=== PATIENT | female | born 1960 | race African-American/Black ===

== ENCOUNTER → 2016-08-30 | Outpatient (CLI) | payer BC | END | disposition home or self-care (01) | LOC: MAMMO 08:06 | PROVIDERS: ATTEND Nurse Practitioner Family | DX: Z12.31 Encounter for screening mammogram for malignant neoplasm of breast (principal) | CPT/HCPCS: G0202 ==

== ENCOUNTER → 2016-12-14 | Outpatient (CLI) | payer BC | END | disposition home or self-care (01) | LOC: LAB 06:03 | PROVIDERS: ATTEND Nurse Practitioner Family | DX: Z00.00 Encounter for general adult medical examination without abnormal findings (principal); R73.03 Prediabetes | CPT/HCPCS: 36415; 83036; 86803 ==

== ENCOUNTER → 2017-08-31 | Outpatient (CLI) | payer BC ==
[2017-08-31 11:11] LABS: BASOPHILS % 1.1 % (0.0-2.0); EOSINOPHILS % 1.2 % (0.0-5.0); HEMATOCRIT. 37.3 % (36.0-48.0); HEMOGLOBIN. 12.9 g/dL (12.0-16.0); MEAN CORPUSCULAR HEMOGLOBIN 31.2 pg (28.0-32.0); MEAN CORPUSCULAR VOLUME 90.3 fL (81.0-99.0); MEAN PLATELET VOLUME 7.4 fl (7.4-10.4); MONOCYTES % 8.3 % (2.0-8.0); NEUTROPHILS % 48.4 % (40.0-76.0); PLATELET 389 x1000/uL (130-400); RED BLOOD CELL COUNT 4.13 mill/uL (4.2-5.4); RED CELL DISTRIBUTION WIDTH 12.9 % (11.6-14.6)
[2017-08-31 12:04] LABS: CHLORIDE 107 mEq/L (98-107)
[2017-08-31 12:23] LABS: HDL CHOLESTEROL 62 mg/dL (40-59); LDL CHOLESTEROL 88 mg/dL (5-100); T4 FREE 0.84 ng/dL (0.76-1.46)
[2017-08-31 12:51] LABS: VITAMIN B12 SERUM 529 pg/mL (211-911)
== END | disposition home or self-care (01) ==
LOC: LAB 10:00
PROVIDERS: ATTEND Family Medicine
DX: Z00.01 Encounter for general adult medical examination with abnormal findings (principal); R79.89 Other specified abnormal findings of blood chemistry; Z79.899 Other long term (current) drug therapy
CPT/HCPCS: 36415; 80053; 80061; 82306; 82607; 82610; 82670; 83001; 83036; 84403; 84439; 84443; 84481; 85025; 86376

== ENCOUNTER → 2017-09-25 | Outpatient (CLI) | payer BC | END | disposition home or self-care (01) | LOC: MAMMO 07:38 | PROVIDERS: ATTEND Family Medicine | DX: Z12.31 Encounter for screening mammogram for malignant neoplasm of breast (principal) | CPT/HCPCS: 77067 ==

== ENCOUNTER → 2018-07-04 | Outpatient (CLI) | payer BC ==
[2018-07-04 12:24] LABS: CLARITY URINE CLOUDY (CLEAR); COLOR URINE YELLOW (YELLOW); KETONES URINE NEGATIVE (NEGATIVE); LEUKOCYTE ESTERASE URINE 2+ (NEGATIVE); NITRITE URINE POSITIVE (NEGATIVE); OCCULT BLOOD URINE 2+ (NEGATIVE); PH URINE 5.5 (4.5-8.0); PROTEIN URINE 1+ (NEGATIVE); UROBILINOGEN URINE 0.2 E.U./dL (0.2-1.0)
== END | disposition home or self-care (01) ==
LOC: LAB 11:59
PROVIDERS: ATTEND Family Medicine
DX: N39.0 Urinary tract infection, site not specified (principal)
CPT/HCPCS: 87077; 87186

== ENCOUNTER → 2018-07-25 | Outpatient (CLI) | payer BC ==
[2018-07-25 06:57] LABS: BASOPHILS % 1.2 % (0.0-2.0); EOSINOPHILS % 1.6 % (0.0-5.0); HEMATOCRIT. 39.7 % (36.0-48.0); HEMOGLOBIN. 13.5 g/dL (12.0-16.0); LYMPHOCYTES % 43.4 % (20.0-50.0); MEAN CORPUSCULAR HEMOGLOBIN 31.6 pg (28.0-32.0); MEAN CORPUSCULAR VOLUME 92.6 fL (81.0-99.0); MEAN PLATELET VOLUME 7.5 fl (7.4-10.4); MONOCYTES % 9.8 % (2.0-8.0); PLATELET 406 x1000/uL (130-400); RED BLOOD CELL COUNT 4.29 mill/uL (4.2-5.4)
[2018-07-25 07:53] LABS: CHLORIDE 104 mEq/L (98-107)
[2018-07-25 08:00] LABS: LDL CHOLESTEROL 97 mg/dL (5-100)
[2018-07-25 08:02] LABS: HDL CHOLESTEROL 70 mg/dL (40-59)
== END | disposition home or self-care (01) ==
LOC: LAB 06:07
PROVIDERS: ATTEND Nurse Practitioner Family
DX: J45.30 Mild persistent asthma, uncomplicated (principal); R73.03 Prediabetes
CPT/HCPCS: 36415; 80061; 84443

== ENCOUNTER → 2020-01-27 | Outpatient (CLI) | payer BC | END | disposition home or self-care (01) | LOC: LAB 07:11 | PROVIDERS: ATTEND Nurse Practitioner Family | DX: Z03.818 Encounter for observation for suspected exposure to other biological agents ruled out (principal) | CPT/HCPCS: C9803; U0003 ==

== ENCOUNTER → 2020-01-30 | Outpatient (CLI) | payer BC | END | disposition home or self-care (01) | LOC: MAMMO 07:18 | PROVIDERS: ATTEND Nurse Practitioner Family | DX: Z12.31 Encounter for screening mammogram for malignant neoplasm of breast (principal); N64.89 Other specified disorders of breast | CPT/HCPCS: 77067 ==

== ENCOUNTER → 2021-02-15 | Outpatient (CLI) | payer BC ==
[2021-02-15 10:17] LABS: CHLORIDE 108 mEq/L (98-107)
[2021-02-15 10:25] LABS: LDL CHOLESTEROL 104 mg/dL (5-100)
[2021-02-15 10:26] LABS: HDL CHOLESTEROL 76 mg/dL (40-59)
== END | disposition home or self-care (01) ==
LOC: LAB 09:34
PROVIDERS: ATTEND Nurse Practitioner Family
DX: R73.03 Prediabetes (principal)
CPT/HCPCS: 36415; 80053; 80061; 82306; 83036; 84443

== ENCOUNTER → 2021-06-23 | Outpatient (CLI) | payer BC | END | disposition home or self-care (01) | LOC: LAB 06:19 | PROVIDERS: ATTEND Nurse Practitioner Family | DX: Z00.00 Encounter for general adult medical examination without abnormal findings (principal) | CPT/HCPCS: 36415; 80061; 82306; 83036 ==

== ENCOUNTER → 2022-03-02 | Outpatient (CLI) | payer BC ==
[2022-03-02 08:12] LABS: BASOPHILS % 0.7 % (0.0-2.0); EOSINOPHILS % 0.7 % (0.0-5.0); HEMATOCRIT. 38.3 % (36.0-48.0); HEMOGLOBIN. 13.2 g/dL (12.0-16.0); LYMPHOCYTES % 23.7 % (20.0-50.0); MEAN CORPUSCULAR HEMOGLOBIN 32.5 pg (28.0-32.0); MEAN CORPUSCULAR VOLUME 93.9 fL (81.0-99.0); MEAN PLATELET VOLUME 7.2 fl (7.4-10.4); NEUTROPHILS % 64.9 % (40.0-76.0); PLATELET 334 x1000/uL (130-400); RED BLOOD CELL COUNT 4.08 mill/uL (4.2-5.4); RED CELL DISTRIBUTION WIDTH 12.9 % (11.6-14.6)
[2022-03-02 08:26] LABS: CHLORIDE 105 mEq/L (98-107)
[2022-03-02 08:48] LABS: HDL CHOLESTEROL 66 mg/dL (40-59); LDL CHOLESTEROL 95 mg/dL (5-100)
== END | disposition home or self-care (01) ==
LOC: LAB 06:28
PROVIDERS: ATTEND Nurse Practitioner Family
DX: Z00.00 Encounter for general adult medical examination without abnormal findings (principal); R73.03 Prediabetes
CPT/HCPCS: 36415; 80053; 80061; 83036; 85025

== ENCOUNTER → 2022-09-22 | Outpatient (CLI) | payer BC ==
[2022-09-22 06:46] LABS: BASOPHILS % 0.9 % (0.0-2.0); EOSINOPHILS % 1.3 % (0.0-5.0); HEMATOCRIT. 38.4 % (36.0-48.0); HEMOGLOBIN. 13.4 g/dL (12.0-16.0); LYMPHOCYTES % 38.5 % (20.0-50.0); MEAN CORPUSCULAR HEMOGLOBIN 33.1 pg (28.0-32.0); MEAN CORPUSCULAR VOLUME 95.1 fL (81.0-99.0); MONOCYTES % 9.1 % (2.0-8.0); NEUTROPHILS % 50.2 % (40.0-76.0); PLATELET 375 x1000/uL (130-400); RED BLOOD CELL COUNT 4.04 mill/uL (4.2-5.4); RED CELL DISTRIBUTION WIDTH 12.8 % (11.6-14.6)
[2022-09-22 07:30] LABS: CHLORIDE 107 mEq/L (98-107)
== END | disposition home or self-care (01) ==
LOC: LAB 06:13
PROVIDERS: ATTEND Nurse Practitioner Family
DX: R51.9 Headache, unspecified (principal)
CPT/HCPCS: 36415; 80053; 83036; 84443; 85025

== ENCOUNTER → 2022-09-27 | Outpatient (CLI) | payer BC | END | disposition home or self-care (01) | LOC: MRI 07:30 | PROVIDERS: ATTEND Nurse Practitioner Family | DX: G44.52 New daily persistent headache (NDPH) (principal) | CPT/HCPCS: 70551 ==

== ENCOUNTER → 2023-03-05 | Outpatient (CLI) | payer BC ==
[2023-03-05 06:40] LABS: CHLORIDE 112 mEq/L (98-107); INDEX HEMOLYSI 1 (1-3); INDEX ICTERIC 1 (1-4); INDEX LIPEMIC 1 (1-3); POTASSIUM 4.3 mEq/L (3.5-5.1); SODIUM 140 mEq/L (136-145)
[2023-03-05 06:55] LABS: ALANINE AMINOTRANSFERASE 32 IU/L (13-61); ALBUMIN 3.4 g/dL (3.4-5.0); ASPARTATE AMINOTRANSFERASE 14 IU/L (15-37); BILIRUBIN TOTAL 0.5 mg/dL (0.1-1.0); CALCIUM 9.4 mg/dL (8.5-10.1); CARBON DIOXIDE 29 mEq/L (21-32); CHOLESTEROL 181 mg/dL (<200); CREATININE 0.9 mg/dL (0.6-1.3); GLUCOSE 107 mg/dL (70-105); HDL CHOLESTEROL 74 mg/dL (40-59); LDL CHOLESTEROL 98 mg/dL (5-100); PROTEIN TOTAL 7.4 g/dL (6.0-8.3); TRIGLYCERIDE 81 mg/dL (0-150); UREA NITROGEN BLOOD 13 mg/dL (7-21)
[2023-03-05 06:58] LABS: BASOPHILS % 1.4 % (0.0-2.0); EOSINOPHILS % 1.8 % (0.0-5.0); HEMATOCRIT. 38.2 % (36.0-48.0); HEMOGLOBIN. 13.1 g/dL (12.0-16.0); LYMPHOCYTES % 40.5 % (20.0-50.0); MEAN CORPUSCULAR HGB CONC 34.2 g/dL (31.0-37.0); MEAN CORPUSCULAR VOLUME 93.6 fL (81.0-99.0); MEAN PLATELET VOLUME 7.3 fl (7.4-10.4); MONOCYTES % 11.6 % (2.0-8.0); NEUTROPHILS % 44.7 % (40.0-76.0); PLATELET 336 x1000/uL (130-400); RED BLOOD CELL COUNT 4.08 mill/uL (4.2-5.4); RED CELL DISTRIBUTION WIDTH 12.8 % (11.6-14.6); WHITE BLOOD COUNT 3.4 x1000/uL (4.5-11.0)
== END | disposition home or self-care (01) ==
LOC: LAB 06:07
PROVIDERS: ATTEND Nurse Practitioner Family
DX: R51.9 Headache, unspecified (principal); E66.01 Morbid (severe) obesity due to excess calories
CPT/HCPCS: 36415; 80053; 80061; 83036; 84443; 85025

== ENCOUNTER → 2023-03-20 | Outpatient (CLI) | payer BC ==
[2023-03-20 09:11] LABS: CLARITY URINE CLEAR (CLEAR); COLOR URINE YELLOW (YELLOW); GLUCOSE URINE NEGATIVE (NEGATIVE); KETONES URINE NEGATIVE (NEGATIVE); LEUKOCYTE ESTERASE URINE TRACE (NEGATIVE); NITRITE URINE NEGATIVE (NEGATIVE); OCCULT BLOOD URINE NEGATIVE (NEGATIVE); PROTEIN URINE NEGATIVE (NEGATIVE); SPECIFIC GRAVITY URINE 1.017 (1.005-1.030); UROBILINOGEN URINE 0.2 E.U./dL (0.2-1.0)
[2023-03-20 09:14] LABS: YEAST URINE NONE SEEN
[2023-03-20 09:30] LABS: BACTERIA URINE FEW; RBC URINE 0-2 /hpf (0-2); SQUAMOUS EPITHELIAL CELL URINE FEW /lpf (RARE/1+); WBC URINE 0-2 /hpf (0-2)
== END | disposition home or self-care (01) ==
LOC: US 08:35
PROVIDERS: ATTEND Nurse Practitioner Family
DX: N85.8 Other specified noninflammatory disorders of uterus (principal); D25.9 Leiomyoma of uterus, unspecified
CPT/HCPCS: 76830; 76856; 81003; 87109

== ENCOUNTER → 2023-05-01 | Outpatient (CLI) | payer BC ==
[2023-05-01 11:43] LABS: BASOPHILS % 1.2 % (0.0-2.0); EOSINOPHILS % 1.1 % (0.0-5.0); HEMATOCRIT. 39.6 % (36.0-48.0); HEMOGLOBIN. 13.4 g/dL (12.0-16.0); LYMPHOCYTES % 33.3 % (20.0-50.0); MEAN CORPUSCULAR HGB CONC 33.8 g/dL (31.0-37.0); MEAN CORPUSCULAR VOLUME 94.7 fL (81.0-99.0); MEAN PLATELET VOLUME 6.9 fl (7.4-10.4); MONOCYTES % 7.5 % (2.0-8.0); NEUTROPHILS % 56.9 % (40.0-76.0); PLATELET 410 x1000/uL (130-400); RED BLOOD CELL COUNT 4.18 mill/uL (4.2-5.4); RED CELL DISTRIBUTION WIDTH 13.3 % (11.6-14.6); WHITE BLOOD COUNT 5.5 x1000/uL (4.5-11.0)
== END | disposition home or self-care (01) ==
LOC: LAB 11:27
PROVIDERS: ATTEND Ophthalmology
DX: I44.4 Left anterior fascicular block (principal); H25.012 Cortical age-related cataract, left eye
CPT/HCPCS: 36415; 80051; 82947; 85025; 93005

== ENCOUNTER → 2023-05-08 | Day surgery (SDC) | payer BC ==
[~2023-05-08] VITALS: Ht 165.1 cm; Wt 102.1 kg
[~2023-05-08] MED LIST: ACETAMINOPHEN 325MG TABLET PO PRN; ALBU18HF2 IH; BALANCED SALT IRRIG SOLN COMB1 500ML OP ONE; BUDE10.3 INH; CHOL400D7 PO; CYAN-33 PO; CYCLOPENTOLATE HCL 1% OPHTH DROPS 2ML RIGHTEYE NR; FENTANYL CITRATE/PF 50MCG/ML 2ML VIAL ONE; HYALURONATE SODIUM 10 MG/ML 0.55ML SYRINGE IO ONE; HYDROCODONE/ACETAMINOPHEN 5/325MG TABLET PO PRN; KETOROLAC 30MG/ML VIAL ONE; LACTATED RINGERS 1,000 ML IV SCH; MIDAZOLAM HCL 2 MG/2 ML VIAL ONE; ONDANSETRON HCL 4MG/2ML INJ IV NR; PHENYLEPHRINE HCL 10% OPHTH DROPS 5ML RIGHTEYE NR; TROPICAMIDE 1% OPHTH DROPS 15ML RIGHTEYE NR; VALA500T PO; [UNRECOGNIZED DRUG - CODE] PO
== END | disposition home or self-care (01) ==
LOC: OR 06:50
PROVIDERS: ATTEND Ophthalmology
DX: H25.89 Other age-related cataract (principal); J45.909 Unspecified asthma, uncomplicated; Z90.49 Acquired absence of other specified parts of digestive tract; Z98.890 Other specified postprocedural states; Z79.899 Other long term (current) drug therapy; Z82.49 Family history of ischemic heart disease and other diseases of the circulatory system; Z83.3 Family history of diabetes mellitus
CPT/HCPCS: 66982; J3010; J1885; J2250; J3490; V2632

== ENCOUNTER → 2023-11-06 | Outpatient (CLI) | payer BC ==
[~2023-11-06] MED LIST changes: -ACETAMINOPHEN 325MG TABLET PO PRN; -BALANCED SALT IRRIG SOLN COMB1 500ML OP ONE; -CYCLOPENTOLATE HCL 1% OPHTH DROPS 2ML RIGHTEYE NR; -FENTANYL CITRATE/PF 50MCG/ML 2ML VIAL ONE; -HYALURONATE SODIUM 10 MG/ML 0.55ML SYRINGE IO ONE; -HYDROCODONE/ACETAMINOPHEN 5/325MG TABLET PO PRN; -KETOROLAC 30MG/ML VIAL ONE; -LACTATED RINGERS 1,000 ML IV SCH; -MIDAZOLAM HCL 2 MG/2 ML VIAL ONE; -ONDANSETRON HCL 4MG/2ML INJ IV NR; -PHENYLEPHRINE HCL 10% OPHTH DROPS 5ML RIGHTEYE NR; -TROPICAMIDE 1% OPHTH DROPS 15ML RIGHTEYE NR
[2023-11-06 10:22] LABS: BASOPHILS % 1.1 % (0.0-2.0); EOSINOPHILS % 1.6 % (0.0-5.0); HEMATOCRIT. 41.5 % (36.0-48.0); MEAN CORPUSCULAR HEMOGLOBIN 32.5 pg (28.0-32.0); MEAN CORPUSCULAR HGB CONC 33.6 g/dL (31.0-37.0); MEAN CORPUSCULAR VOLUME 96.5 fL (81.0-99.0); MEAN PLATELET VOLUME 7.3 fl (7.4-10.4); MONOCYTES % 10.7 % (2.0-8.0); NEUTROPHILS % 46.6 % (40.0-76.0); PLATELET 418 x1000/uL (130-400); RED CELL DISTRIBUTION WIDTH 12.7 % (11.6-14.6); WHITE BLOOD COUNT 4.5 x1000/uL (4.5-11.0)
[2023-11-06 10:28] LABS: CLARITY URINE CLOUDY (CLEAR); COLOR URINE YELLOW (YELLOW); GLUCOSE URINE NEGATIVE (NEGATIVE); KETONES URINE NEGATIVE (NEGATIVE); LEUKOCYTE ESTERASE URINE NEGATIVE (NEGATIVE); NITRITE URINE NEGATIVE (NEGATIVE); OCCULT BLOOD URINE TRACE (NEGATIVE); PH URINE 5.5 (4.5-8.0); PROTEIN URINE NEGATIVE (NEGATIVE); SPECIFIC GRAVITY URINE 1.023 (1.005-1.030); UROBILINOGEN URINE 0.2 E.U./dL (0.2-1.0)
[2023-11-06 10:41] LABS: SQUAMOUS EPITHELIAL CELL URINE 2+ /lpf (RARE/1+)
[2023-11-06 10:42] LABS: BACTERIA URINE 2+; RBC URINE 0-2 /hpf (0-2); WBC URINE NONE SEEN /hpf (0-2)
[2023-11-06 10:48] LABS: CHLORIDE 102 mEq/L (98-107); POTASSIUM 4.3 mEq/L (3.5-5.1); SODIUM 138 mEq/L (136-145)
[2023-11-06 10:49] LABS: CARBON DIOXIDE 28 mEq/L (21-32)
[2023-11-06 10:54] LABS: CREATININE 0.9 mg/dL (0.6-1.0); GLUCOSE 90 mg/dL (70-105); TRIGLYCERIDE 188 mg/dL (0-150); UREA NITROGEN BLOOD 14 mg/dL (9-23)
[2023-11-06 10:55] LABS: LDL CHOLESTEROL 121 mg/dL (5-100)
[2023-11-06 10:56] LABS: CHOLESTEROL 211 mg/dL (<200); HDL CHOLESTEROL 71 mg/dL (>65)
[2023-11-06 10:59] LABS: THYROID STIMULATING HORMONE 2.08 uIU/mL (0.55-4.78)
== END | disposition home or self-care (01) ==
LOC: LAB 09:41
PROVIDERS: ATTEND Internal Medicine Nephrology
DX: R73.03 Prediabetes (principal)
CPT/HCPCS: 36415; 80048; 80061; 81003; 83036; 84443; 85025

== ENCOUNTER → 2023-11-16 | Outpatient (CLI) | payer BC | END | disposition home or self-care (01) | LOC: LAB 06:56 | PROVIDERS: ATTEND Internal Medicine Nephrology | DX: M25.561 Pain in right knee (principal) | CPT/HCPCS: 73562 ==

== ENCOUNTER → 2023-12-10 | Outpatient (CLI) | payer BC ==
[2023-12-10 12:39] LABS: EOSINOPHILS % 1.3 % (0.0-5.0); HEMATOCRIT. 39.4 % (36.0-48.0); HEMOGLOBIN. 13.5 g/dL (12.0-16.0); LYMPHOCYTES % 37.3 % (20.0-50.0); MEAN CORPUSCULAR HEMOGLOBIN 32.5 pg (28.0-32.0); MEAN CORPUSCULAR HGB CONC 34.3 g/dL (31.0-37.0); MEAN CORPUSCULAR VOLUME 94.8 fL (81.0-99.0); MEAN PLATELET VOLUME 7.6 fl (7.4-10.4); MONOCYTES % 8.1 % (2.0-8.0); NEUTROPHILS % 52.3 % (40.0-76.0); PLATELET 352 x1000/uL (130-400); RED BLOOD CELL COUNT 4.15 mill/uL (4.2-5.4); RED CELL DISTRIBUTION WIDTH 12.8 % (11.6-14.6); WHITE BLOOD COUNT 5.6 x1000/uL (4.5-11.0)
[2023-12-10 13:03] LABS: URIC ACID 5.6 mg/dL (3.1-7.8)
[2023-12-10 13:14] LABS: C REACTIVE PROTEIN QUANT 11.2 mg/L (0.0-3.0)
[2023-12-16 09:07] LABS: ANA IFA Positive (.)
== END | disposition home or self-care (01) ==
LOC: LAB 11:51
PROVIDERS: ATTEND Orthopaedic Surgery
DX: M25.561 Pain in right knee (principal); J30.9 Allergic rhinitis, unspecified
CPT/HCPCS: 36415; 84550; 85025; 86003; 86140; 86256; 86431

== ENCOUNTER 2023-12-22 02:41 | Emergency (ER) | payer BC ==
[~2023-12-22] VITALS: Ht 165.1 cm; Wt 105.3 kg
[2023-12-22 03:45] VITALS: O2SAT 99
[2023-12-22] MEDS ORDERED: KETO10TA2 MT (08:45)
[2023-12-22 09:00] VITALS: BP 145/86; PULSE 79; RESP 19; TEMP 98.2
[2023-12-22] MEDS: KETOROLAC 10MG TABLET PO ONE (09:00)
== END 2023-12-22 10:56 | disposition home or self-care (01) ==
LOC: ER 02:41
DX: M25.561 Pain in right knee (principal); J45.909 Unspecified asthma, uncomplicated; Z90.49 Acquired absence of other specified parts of digestive tract; Z98.890 Other specified postprocedural states; Z88.2 Allergy status to sulfonamides; Z98.51 Tubal ligation status
CPT/HCPCS: 99283

== ENCOUNTER → 2024-04-04 | Outpatient (CLI) | payer BC ==
[~2024-04-04] MED LIST changes: +KETO10TA2 MT
[2024-04-04 12:41] LABS: BASOPHILS % 1.2 % (0.0-2.0); EOSINOPHILS % 1.7 % (0.0-5.0); HEMATOCRIT. 38.8 % (36.0-48.0); LYMPHOCYTES % 37.5 % (20.0-50.0); MEAN CORPUSCULAR HEMOGLOBIN 31.8 pg (28.0-32.0); MEAN CORPUSCULAR HGB CONC 33.6 g/dL (31.0-37.0); MEAN CORPUSCULAR VOLUME 94.7 fL (81.0-99.0); MEAN PLATELET VOLUME 7.2 fl (7.4-10.4); MONOCYTES % 11.4 % (2.0-8.0); NEUTROPHILS % 48.2 % (40.0-76.0); PLATELET 408 x1000/uL (130-400); RED CELL DISTRIBUTION WIDTH 12.7 % (11.6-14.6)
[2024-04-04 12:59] LABS: URIC ACID 6.4 mg/dL (3.1-7.8)
[2024-04-04 13:00] LABS: C REACTIVE PROTEIN HIGH SENS 8.63 mg/l (<1.00)
[2024-04-04 14:18] LABS: ERYTHROCYTE SEDIMENTATION RATE 20 mm/hr (0-30)
== END | disposition home or self-care (01) ==
LOC: LAB 12:05
PROVIDERS: ATTEND Orthopaedic Surgery
DX: M25.561 Pain in right knee (principal)
CPT/HCPCS: 36415; 84550; 85025; 85651; 86038; 86141; 86430

== ENCOUNTER → 2024-04-09 | Outpatient (CLI) | payer BC | END | disposition home or self-care (01) | LOC: MRI 08:34 | PROVIDERS: ATTEND Orthopaedic Surgery | DX: S83.011A Lateral subluxation of right patella, initial encounter (principal); M17.11 Unilateral primary osteoarthritis, right knee; M25.461 Effusion, right knee; X58.XXXA Exposure to other specified factors, initial encounter; Y93.89 Activity, other specified; Y92.89 Other specified places as the place of occurrence of the external cause; Y99.8 Other external cause status | CPT/HCPCS: 73721 ==

== ENCOUNTER → 2024-04-21 | Outpatient (CLI) | payer BC | END | disposition home or self-care (01) | LOC: US 09:30 | PROVIDERS: ATTEND Obstetrics & Gynecology | DX: D25.1 Intramural leiomyoma of uterus (principal); N95.0 Postmenopausal bleeding | CPT/HCPCS: 76830; 76856 ==